=== PATIENT | female | born 1995 | race Caucasian/White ===

== ENCOUNTER 2019-02-07 12:21 | Emergency (ER) | payer MEDICAID ==
[~2019-02-07] VITALS: Ht 157.5 cm; Wt 65.3 kg
[2019-02-07 12:30] VITALS: BP 128/63
--- NOTE | 2019-02-07 14:06 | NUR ---
PT TO ER BED 3
[2019-02-07] MEDS ORDERED: NACL 0.9% 1,000 ML IV ONE (14:20)
[2019-02-07] MEDS ORDERED: ONDANSETRON 4 MG/2 ML VIAL IVP ONE (14:20)
[2019-02-07 16:34] LABS: APPEARANCE,URINE CLEAR (CLEAR); BILIRUBIN,URINE NEGATIVE (NEGATIVE); BLOOD, URINE NEGATIVE (NEGATIVE); COLOR,URINE YELLOW (YELLOW); LEUKOCYTE ESTERASE ,URINE NEGATIVE (NEGATIVE); NITRITE, URINE NEGATIVE (NEGATIVE); UGLUCOSE NEGATIVE (NEGATIVE)
[2019-02-07 17:28] VITALS: BP 110/60
--- NOTE | 2019-02-07 17:28 | NUR ---
Patient discharged with v/s stable. Written and verbal after care instructions given and explained. Patient alert, oriented and verbalized understanding of instructions. Ambulatory with steady gait. All questions addressed prior to discharge. ID band removed. Patient advised to follow up with PMD. Rx of ZOFRAN,BENTYL,EMODIUM given. Patient educated on indication of medication including possible reaction and side effects. Opportunity to ask questions provided and answered.
== END 2019-02-07 17:28 | disposition home or self-care (01) ==
LOC: MED 12:21
DX: T62.8X1A Toxic effect of other specified noxious substances eaten as food, accidental (unintentional), initial encounter (principal); Y92.89 Other specified places as the place of occurrence of the external cause
CPT/HCPCS: 81003; 81025; 96361; 96374; 99283; J2405; J7030; 81002

== ENCOUNTER 2021-05-01 17:56 | Emergency (ER) | payer MEDICAID ==
[~2021-05-01] VITALS: Ht 154.9 cm; Wt 64.9 kg
[2021-05-01 18:05] VITALS: BP 120/78
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
[2021-05-01] MEDS ORDERED: IBUPROFEN 600 MG TAB PO ONE (18:35)
[2021-05-01] MEDS ORDERED: CYCL-711 PO (18:42)
[2021-05-01] MEDS ORDERED: IBUP-2213 PO (18:42)
[2021-05-01 18:55] VITALS: BP 120/78
--- NOTE | 2021-05-01 18:55 | NUR ---
Patient discharged with v/s stable. Written and verbal after care instructions given and explained. Patient alert, oriented and verbalized understanding of instructions. Ambulatory with steady gait. All questions addressed prior to discharge. ID band removed. Patient advised to follow up with PMD. Rx of FLEXIRIL, MOTRIN given. Patient educated on indication of medication including possible reaction and side effects. Opportunity to ask questions provided and answered.
== END 2021-05-01 18:55 | disposition home or self-care (01) ==
LOC: MED 17:56
DX: S16.1XXA Strain of muscle, fascia and tendon at neck level, initial encounter (principal); S46.819A Strain of other muscles, fascia and tendons at shoulder and upper arm level, unspecified arm, initial encounter; Z79.899 Other long term (current) drug therapy; V89.2XXA Person injured in unspecified motor-vehicle accident, traffic, initial encounter; Y93.89 Activity, other specified; Y92.89 Other specified places as the place of occurrence of the external cause; Y99.8 Other external cause status
CPT/HCPCS: 99283

== ENCOUNTER 2023-07-13 10:12 | Emergency (ER) | payer MEDICAID ==
[~2023-07-13] VITALS: Ht 157.5 cm; Wt 64.4 kg
[~2023-07-13 10:12] MED LIST: CYCL-711 PO; IBUP-2213 PO
[2023-07-13 10:36] VITALS: BP 129/85; PULSE 103; RESP 16; TEMP 98.3; O2SAT 98
[2023-07-13] MEDS ORDERED: ALBUTEROL 0.083% 2.5 MG/3 ML NEBU INH ONE (11:15)
[2023-07-13] MEDS ORDERED: ACETAMINOPHEN 325 MG TAB PO ONE (11:15)
[2023-07-13] MEDS ORDERED: ALBUTEROL HFA MDI 90 MCG/ACTUATION 8 GM INH ONE (11:25)
[2023-07-13] MEDS ORDERED: ACETAMINOPHEN 325 MG TAB ONE (12:23)
[2023-07-13 12:58] LABS: APPEARANCE,URINE TURBID (CLEAR); BILIRUBIN,URINE NEGATIVE (NEGATIVE); BLOOD, URINE NEGATIVE (NEGATIVE); COLOR,URINE YELLOW (YELLOW); LEUKOCYTE ESTERASE ,URINE 1+ (NEGATIVE); NITRITE, URINE NEGATIVE (NEGATIVE); PROTEIN,URINE TRACE (NEGATIVE); UGLUCOSE NEGATIVE (NEGATIVE)
[2023-07-13 13:00] VITALS: BP 112/75; PULSE 78; RESP 16; TEMP 98.1
[2023-07-13 13:15] VITALS: O2SAT 98
[2023-07-13 13:31] LABS: RBC,URINE 0-5 /HPF (0-5)
[2023-07-13 13:32] LABS: BACTERIA,URINE 1+ /HPF (None Seen); SQUAMOUS EPITHELIAL CELL,UR 50-80 /LPF (0-3 (FEW))
[2023-07-13 13:56] LABS: FLU A ANTIGEN negative (NEGATIVE); FLU B ANTIGEN negative (NEGATIVE)
[2023-07-13] MEDS ORDERED: ACET-10509 PO (13:56)
[2023-07-13] MEDS ORDERED: ALBU0.0912 IH (13:56)
[2023-07-13] MEDS ORDERED: CEPH-588 PO (14:15)
== END 2023-07-13 14:20 | disposition home or self-care (01) ==
LOC: MED 10:12
DX: O98.512 Other viral diseases complicating pregnancy, second trimester (principal); U07.1 COVID-19; Z3A.27 27 weeks gestation of pregnancy
CPT/HCPCS: 81001; 87086; 94640; 99283; J7613